=== PATIENT | female | born 1955 | race Caucasian/White ===

== ENCOUNTER 2021-12-21 00:59 | Outpatient (CLI) | payer MEDICARE, SELFPAY ==
--- NOTE | 2021-12-21 14:35 | DI.CT_ITS ---
Exam(s) CT SINUS WO EXAM: CT SINUS WO CLINICAL HISTORY: CHRONIC MAXILLARY SINUSITIS, J32.0. Evaluate for sinusitis. TECHNIQUE: Imaging Protocol: Axial computed tomography images with coronal and sagittal reformatted images were created and reviewed. COMPARISON: No exams were available for comparison FINDINGS: AXIAL IMAGES: Frontal sinuses: Normally aerated. Ethmoid air cells: Normally aerated. Maxillary sinuses: Fluid levels are seen in both maxillary sinuses. There is mild mucosal thickening in the left maxillary sinus. Sphenoid sinus: Normally aerated. Ostiomeatal complexes: Patent. Osseous nasal septum: Midline. Visualized regional soft tissues: No acute findings. Orbits: Unremarkable. Bones: Unremarkable. Mastoid Air Cells: There is opacification of a few ethmoid air cells on the right. IMPRESSION: Air-fluid levels in both maxillary sinuses suggesting acute sinusitis. RADIATION DOSE DELIVERED: 128.88mGy.cm Total DLP DATA REPOSITORY: All CT scans at this facility are submitted to the National Radiology Data Registry (NRDR) Dose Index Registry (DIR) with the [employer] ([employer]). RADIATION OPTIMIZATION: All CT scans at this facility use at least one of these dose optimization te chniques: automated exposure control; mA and/or kV adjustment per patient size (includes targeted exa ms where dose is matched to clinical indication); or iterative reconstruction.
== END 2021-12-21 01:19 ==
PROVIDERS: PCP Internal Medicine; Visit Provider Family Medicine
DX: J01.01 Acute recurrent maxillary sinusitis (principal)
CPT/HCPCS: 70486

== ENCOUNTER 2022-02-08 00:52 | Outpatient (CLI) | payer MEDICARE, SELFPAY ==
--- NOTE | 2022-02-08 14:30 | DI.CT_ITS ---
Exam(s) CT SINUS WO EXAM: CT SINUS WO CLINICAL HISTORY: SINUSITIS, J32.9, ASSESS MAXILLARY/ETHMOID S/P ABX, R/O POLYP/OBSTRUCTION. Evalua te for sinusitis. TECHNIQUE: Imaging Protocol: Axial computed tomography images with coronal and sagittal reformatted images were created and reviewed. COMPARISON: CT CT SINUS WO from 12/21/2021 FINDINGS: AXIAL IMAGES: Frontal sinuses: Normally aerated. Ethmoid air cells: Normally aerated. Maxillary sinuses: Significant in pleura minute of bilateral maxillary sinus air-fluid levels. Minim al mucous retention hip versus fluid is seen at the floor of the right maxillary sinus. A small amou nt of fluid versus mucous retention is seen at the floor of the left maxillary sinus. Sphenoid sinus: Normally aerated. Ostiomeatal complexes: Patent. Osseous nasal septum: Midline. Visualized regional soft tissues: No acute findings. Orbits: Unremarkable. Bones: Unremarkable. Mastoid Air Cells: Normally aerated. IMPRESSION: Significant improvement in bilateral maxillary sinusitis. No new abnormalities. RADIATION DOSE DELIVERED: 116.57mGy.cm Total DLP DATA REPOSITORY: All CT scans at this facility are submitted to the National Radiology Data Registry (NRDR) Dose Index Registry (DIR) with the [employer] ([employer]). RADIATION OPTIMIZATION: All CT scans at this facility use at least one of these dose optimization te chniques: automated exposure control; mA and/or kV adjustment per patient size (includes targeted exa ms where dose is matched to clinical indication); or iterative reconstruction.
== END 2022-02-08 01:12 ==
PROVIDERS: PCP Internal Medicine; Visit Provider Family Medicine
DX: J32.9 Chronic sinusitis, unspecified (principal)
CPT/HCPCS: 70486

== ENCOUNTER 2022-07-25 10:04 | Emergency (ER) | payer MEDICARE, SELFPAY ==
[2022-07-25] VITALS (11 sets, daily range): BP systolic 98–154; BP diastolic 66–94; PULSE 89–100; RESP 17–32; TEMP 36.4–36.9; O2SAT 90–94
--- NOTE | 2022-07-25 10:15 | DI.RAD_ITS ---
Exam(s) XR PORTABLE CHEST AP EXAM: XR PORTABLE CHEST AP CLINICAL HISTORY: SOB, Hx Lung CA TECHNIQUE: 2D digital imaging was performed. COMPARISON: No exams were available for comparison FINDINGS: LUNGS: There are abnormal increased densities in the right upper lobe and some right upper lobe volum e loss. Findings could represent mass versus pneumonia. The right hilum is prominent which is suspi cious for adenopathy. There is thickening in the right paratracheal region, also suspicious for yolande opathy the left lung is clear. . No pleural abnormality seen. HEART: Normal. AORTA: Normal. BONES: Unremarkable for age. Soft tissues: Unremarkable. IMPRESSION: Portable chest difficult to interpret without benefit of prior exams. Right upper lobe density could represent mass in a patient with history of lung carcinoma versus pneumonia.. There is right paratr acheal and right hilar adenopathy. DATA REPOSITORY: RADIATION DOSE DELIVERED:
--- NOTE | 2022-07-25 10:33 | W.ED.GENAD ---
Discharge Plan Disposition Patient Disposition: HOME Condition: Improving Discharge Details Clinical Impression: Cough Primary Care Provider: Didi Johnson ED Provider: Gely Lyn Home Meds and New Rx's Prescriptions: New ondansetron 4 mg tablet,disintegrating 4 mg PO Q8H PRN5 Days Qty: 15 0RF hydrocodone-homatropine [Hydrocodone Compound] 5-1.5 mg/5 mL syrup 5 ml PO Q4H PRN (Reason: cough) Qty: 473 0RF Rx Instructions: Do not operate heavy machinery or drive while on this medication Discharge Instructions Instructions: Acute Cough (ED) Additional Instructions: Follow up with primary care provider in 3-5 days. Return to ED sooner if any worsening or concerns. Increase oral fluids. Take the medicine as prescribed. Please keep your appointment tomorrow. Referrals: Moriah Adames [ NON-[facility] STAFF PHYSICIAN] - 5 days Discharge Data Discharge Date/Time-TO BE ENTERED AT DEPARTURE: 07/25/22 12:28 Medical Decision Making 67-year-old female presents to the ER with chief complaint of shortness of breath, cough, nausea vomiting loose stools. This is been ongoing since May when she was diagnosed with pneumonia and stage IV lung cancer. She is scheduled to begin radiation therapy tomorrow at 930. She reports that she finished a course of prednisone on and since then the cough has gotten worse. Ordered including EKG, troponin, CBC CMP, COVID swab and chest x-ray. Zofran, morphine, methylprednisolone and DuoNeb ordered. CBC shows white blood cell count of 13.18, absolute neutrophils 1.07, sodium 132 potassium 3.0 glucose 140, troponin within normal limits COVID is negative. X-ray shows concern for acute bacterial pneumonia however with patient's lung cancer history she has been told that she will always have pneumonia. She did recently finished a course of antibiotics. I am hesitant to place her on antibiotics again due to her cancer diagnosis and upcoming treatment. I did instruct her to discuss this with her cancer team she verbalizes understanding. Patient was given cough syrup hydrocodone refill and nausea medication. She reports feeling better and the cough is subsided upon reevaluation. This text was generated using [employer]imbasket[employer] system, please disregard any oddities of phrase or misspellings. Medical Records Medical records reviewed: Yes I reviewed the patient's medical records. Imaging Data Radiologic Study: Imaging: X-Ray Radiologist's impression: Clinical indication: Other: SOB HX of lung CA TECHNIQUE: Imaging protocol: Radiologic exam of the chest. Views: 1 view. COMPARISON: No relevant prior studies available. FINDINGS: Lungs: Patchy right upper lobe air space disease. Pleural spaces: Unremarkable. No pleural effusion. No pneumothorax. Heart/Mediastinum: Unremarkable. No cardiomegaly. Bones/joints: Unremarkable. Other findings: Right hilar fullness. IMPRESSION: 1. Patchy right upper lobe airspace disease concerning for acute bacterial pneumonia. 2. Right hilar fullness may reflect hilar lymphadenopathy, possibly reactive in the setting infection. Follow-up to resolution is recommended. Thank you for allowing us to participate in the care of your patient. Dictated and Authenticated by: Kavon Reid MD Lab Data Lab results reviewed: Yes I reviewed the patient's lab results. Labs: Laboratory Tests Range/Units 07/25/22 07/25/22 07/25/22 10:42 10:42 10:42 WBC (4.4-10.8) 10^3/uL 13.18 H RBC (3.93-5.22) 10^6/uL 4.93 Hgb (11.2-15.7) g/dL 14.8 Hct (36.0-46.0) % 42.4 MCV (80-95) fL 86 MCH (27.0-33.0) pg 30.0 MCHC (32.0-36.0) % 34.9 RDW (11.7-14.6) % 13.1 Plt Count (130-400) 10^3/uL 352 MPV (8.0-11.0) fL 10.1 Immature Gran % 0.5 Neutrophils % 84.0 Lymphocytes % 6.5 Monocytes % 7.3 Eosinophils % 1.1 Basophils % 0.6 Nucleated RBC % (0.0-0.3) % 0.0 Absolute Neutrophils (1.2-6.7) 10^3/uL 11.07 H Absolute Lymphocytes (1.2-3.4) 10^3/uL 0.86 L Absolute Monocytes (0.1-0.8) 10^3/uL 0.96 H Absolute Eosinophils (0.0-0.7) 10^3/uL 0.14 Absolute Basophils (0.0-0.2) 10^3/uL 0.08 Sodium (136-145) mmol/L 132 L Potassium (3.5-5.1) mmol/L 3.0 L Chloride (98-107) mmol/L 92 L Carbon Dioxide (21.0-32.0) mmol/L 30.3 Anion Gap (3-11) mmol/L 9.7 BUN (7-18) mg/dL 8 Creatinine (0.55-1.02) mg/dL 0.9 Est GFR (CKD-EPI 2020) (mL/min/1.73m2) 69.20 Glucose (74-106) mg/dL 140 H Calcium (8.5-10.1) mg/dL 9.4 Magnesium (1.8-2.4) mg/dL Total Bilirubin (0.2-1.0) mg/dL 0.7 AST (15-37) U/L 20 ALT (14-59) U/L 33 Alkaline Phosphatase (46-116) U/L 76 Troponin I (<or=60) ng/L < 50 Total Protein (6.4-8.2) g/dL 7.8 Albumin (3.4-5.0) g/dL 3.7 COVID-19 Source Nasal/Nares SARS-CoV-2 (PCR) (Negative) Negative Range/Units 07/25/22 07/25/22 10:42 13:19 WBC (4.4-10.8) 10^3/uL RBC (3.93-5.22) 10^6/uL Hgb (11.2-15.7) g/dL Hct (36.0-46.0) % MCV (80-95) fL MCH (27.0-33.0) pg MCHC (32.0-36.0) % RDW (11.7-14.6) % Plt Count (130-400) 10^3/uL MPV (8.0-11.0) fL Immature Gran % Neutrophils % Lymphocytes % Monocytes % Eosinophils % Basophils % Nucleated RBC % (0.0-0.3) % Absolute Neutrophils (1.2-6.7) 10^3/uL Absolute Lymphocytes (1.2-3.4) 10^3/uL Absolute Monocytes (0.1-0.8) 10^3/uL Absolute Eosinophils (0.0-0.7) 10^3/uL Absolute Basophils (0.0-0.2) 10^3/uL Sodium (136-145) mmol/L Potassium (3.5-5.1) mmol/L Chloride (98-107) mmol/L Carbon Dioxide (21.0-32.0) mmol/L Anion Gap (3-11) mmol/L BUN (7-18) mg/dL Creatinine (0.55-1.02) mg/dL Est GFR (CKD-EPI 2020) (mL/min/1.73m2) Glucose (74-106) mg/dL Calcium (8.5-10.1) mg/dL Magnesium (1.8-2.4) mg/dL 2.0 Total Bilirubin (0.2-1.0) mg/dL AST (15-37) U/L ALT (14-59) U/L Alkaline Phosphatase (46-116) U/L Troponin I (<or=60) ng/L Cancelled Total Protein (6.4-8.2) g/dL Albumin (3.4-5.0) g/dL COVID-19 Source SARS-CoV-2 (PCR) (Negative) HPI General Mode of arrival: wheelchair. Date/Time Provider Initiated Documentation: 07/25/22 10:08. Limitations to Documentation: no limitations. Information obtained by: patient, RN notes reviewed and old records reviewed. HPI Narrative: 67-year-old female presents to the ER with chief complaint of shortness of breath, cough, nausea vomiting loose stools. This is been ongoing since May when she was diagnosed with pneumonia and stage IV lung cancer. She is scheduled to begin radiation therapy tomorrow at 930. She reports that she finished a course of prednisone on and since then the cough has gotten worse. She does normally take hydrocodone syrup for the cough, albuterol inhaler. She reports that she did not take any of her medications this morning due to vomiting. She is alert and oriented x4. Related Data Home Medications Medication Instructions Recorded Confirmed hydrocodone-homatropine 5 mg-1.5 5 ml PO Q4H PRN cough #473 mL 07/25/22 mg/5 mL oral syrup (Hydrocodone Compound) ondansetron 4 mg disintegrating 4 mg PO Q8H PRN 5 days #15 tabs 07/25/22 tablet Previous Rx's Medication Instructions Recorded hydrocodone-homatropine 5 mg-1.5 5 ml PO Q4H PRN cough #473 mL 07/25/22 mg/5 mL oral syrup (Hydrocodone Compound) ondansetron 4 mg disintegrating 4 mg PO Q8H PRN 5 days #15 tabs 07/25/22 tablet General Stated Complaint: RespSymp EUGENIO: 2 Review of Systems All systems reviewed & are unremarkable except as noted in HPI and below Cardiovascular Cardiovascular: Reports dyspnea Respiratory Respiratory: Reports cough and Reports dyspnea PFSH All Active Problems (Updated 07/25/22 @ 11:54 by Gely Lyn NP) Cough (Acute) Social History Smoking/Tobacco Use Status: Former Tobacco Use Smoking risk assessment performed?: Yes Alcohol Intake: current Alcohol Intake frequency: other Substance use type: does not use Details: Pt reports she typically can drink a lot but has not had any alcohol in over a month due to all her new health problems. Do you feel safe at home: Yes Do you feel safe in your relationship?: Yes Exam Narrative Exam Narrative: Constitutional: Alert and oriented x3. Appears stated age. Normal body habitus. Head: Normocephalic, no trauma. Eyes: Pupils PERRL, Red reflex noted, EOM's intact. Eyelids symmetrical without lesions, discharge, or swelling. ENT: Bilateral TM's WNL, External ear normal to inspection, no mastoid TTP, swelling, or erythema, Nasal turbinates WNL, no nasal discharge. Normal dentition, Posterior pharynx WNL, no exudate. Chest: RRR, Normal S1, S2, distal pulses intact. Resp: Lungs clear to auscultation bilaterally, no wheezes, rales, or rhonchi. Abdomen: Soft, non-distended, Normoactive bowel sounds all 4 quads. Musculoskeletal: Normal gait, 5/5 strength to all four extremities. Skin: No suspicious rashes or lesions. Capillary refill less than 2 sec. Neurologic: Cranial nerves II-XII intact. Alert and oriented x 3. Motor: No deficits noted. Sensory: Intact bilaterally all 4 extremities. Reflexes: DTR's intact bilaterally.. Hematologic/Lymphatic: No ecchymosis, no lymphadenopathy. Course Vital Signs Vital signs: Vital Signs Temperature 36.9 C 07/25/22 10:12 Pulse 94 H 07/25/22 10:12 Respiratory Rate 20 07/25/22 10:12 Blood Pressure 142/86 H 07/25/22 10:12 Pulse Oximetry 92 07/25/22 10:12 Temperature 36.9 C 07/25/22 10:12 Temperature Source Temporal Artery Scan 07/25/22 10:12 Pulse 94 H 07/25/22 10:12 Respiratory Rate 20 07/25/22 10:12 Respiratory Effort 07/25/22 10:26 Respiratory Depth Normal 07/25/22 10:26 Blood Pressure 142/86 H 07/25/22 10:12 Blood Pressure Position Sitting 07/25/22 10:12 Pulse Oximetry 92 07/25/22 10:12 Oxygen Delivery Method Room Air 07/25/22 10:12 Oxygen Flow Rate 0 07/25/22 10:12
[2022-07-25 10:47] LABS: Source Nasal/Nares
[2022-07-25 10:49] LABS: Abs Immature Grans 0.07 10^3/uL (0.0-0.06); Absolute Basophil Count 0.08 10^3/uL (0.0-0.2); Absolute Eosinophil Count 0.14 10^3/uL (0.0-0.7); Absolute Lymphocyte Count 0.86 10^3/uL (1.2-3.4); Absolute Monocyte Count 0.96 10^3/uL (0.1-0.8); Absolute Neutrophil Count 11.07 10^3/uL (1.2-6.7); Basophils % 0.6; Eosinophils % 1.1; HCT 42.4 % (36.0-46.0); HGB 14.8 g/dL (11.2-15.7); Immature Grans % 0.5; Lymphocytes % 6.5; MCHC 34.9 % (32.0-36.0); MCV 86 fL (80-95); MPV 10.1 fL (8.0-11.0); Monocytes % 7.3; Platelet Count 352 10^3/uL (130-400); RBC 4.93 10^6/uL (3.93-5.22); RDW 13.1 % (11.7-14.6); RDW-SD 40.7 fL; WBC 13.18 10^3/uL (4.4-10.8)
[2022-07-25] MEDS: Albuterol/Ipratropium 3 ML UPD VIAL UPD (11:06)
[2022-07-25] MEDS: methylPREDNISolone SUCC 125 MG VIAL IVP (11:06)
[2022-07-25] MEDS: MORPHine 4 MG/ML SYR IVP (11:06)
[2022-07-25 11:07] LABS: ALT 33 U/L (14-59); AST 20 U/L (15-37); Albumin 3.7 g/dL (3.4-5.0); Alkaline Phosphatase 76 U/L (46-116); Anion Gap 9.7 mmol/L (3-11); BUN 8 mg/dL (7-18); Bilirubin, Total 0.7 mg/dL (0.2-1.0); CO2 30.3 mmol/L (21.0-32.0); CREATININE 0.9 mg/dL (0.55-1.02); Calcium 9.4 mg/dL (8.5-10.1); Chloride 92 mmol/L (98-107); Glucose 140 mg/dL (74-106); Sodium 132 mmol/L (136-145); Total Protein 7.8 g/dL (6.4-8.2); Troponin I < 50 ng/L (<or=60)
[2022-07-25] MEDS: Normal Saline 500 ML IV (11:07)
[2022-07-25] MEDS: Ondansetron 4 MG/2 ML VIAL IVP (11:08)
--- NOTE | 2022-07-25 11:08 | DI.VRAD_ITS ---
Addendum created by Kavon Reid MD on 07/25/2022 11:11:10 AM EDT: THIS REPORT CONTAINS FINDINGS THAT MAY BE CRITICAL TO PATIENT CARE. The findings were verbally communicated via telephone conference with NICA VILLEDA at 11:10 AM EDT on 07/25/2022. The findings were acknowledged and understood. Initial report created on 07/25/2022 11:07:44 AM EDT: PROCEDURE INFORMATION: Exam: XR Chest Exam date and time: 07/25/2022 10:42 AM Age: 67 years old Clinical indication: Other: SOB HX of lung CA TECHNIQUE: Imaging protocol: Radiologic exam of the chest. Views: 1 view. COMPARISON: No relevant prior studies available. FINDINGS: Lungs: Patchy right upper lobe air space disease. Pleural spaces: Unremarkable. No pleural effusion. No pneumothorax. Heart/Mediastinum: Unremarkable. No cardiomegaly. Bones/joints: Unremarkable. Other findings: Right hilar fullness. IMPRESSION: 1. Patchy right upper lobe airspace disease concerning for acute bacterial pneumonia. 2. Right hilar fullness may reflect hilar lymphadenopathy, possibly reactive in the setting infection. Follow-up to resolution is recommended. Dictated and Authenticated by: Kavon Reid MD. Ordering:JULISA Hong MD
[2022-07-25 11:31] LABS: COVID-19 PCR Negative (Negative)
[2022-07-25] MEDS: Potassium Chloride Liquid 20 MEQ PKT 40 MEQ PO (11:41)
== END 2022-07-25 12:28 | disposition home or self-care (01) ==
PROVIDERS: Emergency Provider Registered Nurse Emergency; PCP Family Medicine
DX: R05.9 Cough, unspecified (principal); J18.9 Pneumonia, unspecified organism; C34.90 Malignant neoplasm of unspecified part of unspecified bronchus or lung; Z20.822 Contact with and (suspected) exposure to COVID-19; Z87.891 Personal history of nicotine dependence
CPT/HCPCS: 80053; 87635; 94640; 96374; 96375; 99284; 71045; 83735; 84484; 85025; J2270; J2405; J2930; J7620